=== PATIENT | male | born 1985 | race Caucasian/White ===

== ENCOUNTER 2022-02-26 11:32 | Emergency (ER) | payer MEDICAID, SELFPAY ==
[2022-02-26 11:33] VITALS: BP 144/92; PULSE 102; RESP 16; TEMP 36.6; O2SAT 99; BMI 21.2
--- NOTE | 2022-02-26 12:10 | RAD_ITS ---
INDICATION: back pain EXAMINATION/TECHNIQUE: X-RAY - XR Chest 2 Views COMPARISON: None. FINDINGS: LINES/DEVICES: None. LUNGS: No consolidation, edema or effusion. No pneumothorax. MEDIASTINUM AND CARDIOVASCULAR STRUCTURES: Cardiac silhouette not enlarged. Central airways and mediastinal contour are unremarkable. BONES AND SOFT TISSUES: Unremarkable. RAD/Chest PA and Lateral IMPRESSION: No radiographic evidence of acute cardiopulmonary disease. Electronically Signed: Gustavo Couch MD at 12:23 EDT ,
--- NOTE | 2022-02-26 12:31 | EX.ED.DYSGE1 ---
HPI History of Present Illness Chief Complaint: Other, Pain/Inj Narrative Narrative: Patient presents with left-sided thoracic back pain since yesterday. No known injury. It is worse with twisting and turning. He has no fevers chills cough or congestion he has no chest pain he has no shortness of breath. He has no midline pain. He has no flank pain or urinary symptoms. He is a smoker. [facility] Medical History Drug abuse Frequent headaches High blood pressure Protruding disc Bilat Home Medications buspirone 5 mg tablet 5 mg PO BID #60 tab 11/24/19 [Rx Last Taken Unknown] trazodone 50 mg tablet 50 mg PO QHS #30 tab 11/24/19 [Rx Last Taken Unknown] naproxen [Naprosyn] 500 mg PO BID #20 tab 02/26/22 [Rx Last Taken Unknown] Allergy/AdvReac Type Severity Reaction Status Date / Time No Known Allergies Allergy Unverified 02/26/22 11:35 Family History Other Anxiety Cancer Heart disease Hypertension Kidney disease Myocardial infarction Surgical History No history of previous surgery Social History Smoking Status: Current every day smoker tobacco type: cigarettes alcohol intake: never substance use type: former substance user 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 what type of physical activity do you participate in: none ROS ROS ED ROS Narrative Past medical history: Reviewed Medications: Reviewed Social history: Noncontributory Review of systems: All systems negative except as indicated General: No fever Eyes: No visual changes ENT: No upper airway congestion, normal voice Neck: No neck pain Cardiovascular: No chest pain Respiratory: No shortness of breath or cough Gastrointestinal: No abdominal pain, nausea vomiting or diarrhea Genitourinary: No dysuria Musculoskeletal: Back pain as in HPI Skin: No rash Neurological: No memory loss, confusion or any focal weakness Psych: No recent behavioral changes Hematologic: No easy bleeding or easy bruising EXAM Physical Exam Narrative Exam Narrative: Physical exam General: Well nourished, Well developed, No Acute Distress Head: Normocephalic, Atraumatic Eyes: Conjunctiva not pale ENT: Moist mucous membranes Neck: Supple, Nontender, No lymphadenopathy Cardiovascular: Regular rate, Regular rhythm Respiratory: No distress, CTA bilaterally Abdomen: Soft, Nontender, Nondistended Back: Patient has tenderness over the left rib region I examined him carefully there is no rash in that region. The pain is slightly reproducible and worse with twisting and turning. Extremities: Nontender, No edema Skin: Normal color, No rash Neurological: Alert, Normal Strength, Normal Sensation Psychological: Normal affect Const Vital Signs: 02/26/22 11:33 Temperature 97.9 F Temperature Source Temporal Pulse Rate 102 H Respiratory Rate 16 Blood Pressure 144/92 H Blood Pressure Mean 109 Pulse Ox 99 Oxygen Delivery Method Room Air MDM MDM MDM Narrative Medical decision making narrative: Patient likely has pleurisy under rib pain. He is a smoker. He has no DVT or PE risk factors currently. He appears well. His x-ray is unremarkable I will treat him for his chest wall pain with NSAIDs otherwise I will discharge him in stable condition. Radiography Diagnostic Testing: Clinical Impression(s) from Imaging Studies Chest X-Ray 02/26/22 12:10 IMPRESSION: No radiographic evidence of acute cardiopulmonary disease. Electronically Signed: Gustavo Couch MD at 12:23 EDT Reading Location ID and State: [facility] / [place] Tel , Service support , Discharge Plan Triage Chief Complaint: Other, Pain/Inj ED Provider: Ricardo Ashley Dx/Rx/DC Orders Clinical Impression: Drug abuse, Rib pain Instructions: ED Pleurisy Prescriptions: New naproxen [Naprosyn] 500 mg tablet 500 mg PO BID Qty: 20 RF: 0 No Action trazodone 50 mg tablet 50 mg PO QHS Qty: 30 RF: 0 buspirone 5 mg tablet 5 mg PO BID Qty: 60 RF: 0 Primary Care Provider: NOT,DEFINED Referrals: NOT,DEFINED [Primary Care Provider] - Disposition Disposition: Home, Self Care
[2022-02-26] MEDS: Ketorolac 30 MG/ML Syringe IM (12:48)
== END 2022-02-26 13:08 | disposition home or self-care (01) ==
LOC: ED 12:39
PROVIDERS: Emergency Provider Emergency Medicine; Visit Provider Emergency Medicine
DX: F19.19 Other psychoactive substance abuse with unspecified psychoactive substance-induced disorder (principal); R07.81 Pleurodynia; F17.210 Nicotine dependence, cigarettes, uncomplicated
CPT/HCPCS: 71046; 96372; 99282